=== PATIENT | male | born 1950 | race Two or more races ===

== ENCOUNTER 2020-08-08 15:21 | Outpatient (CLI) | payer OTHER | END 2020-08-08 16:22 | disposition home or self-care (01) | LOC: PPH VACUNA 15:21 | PROVIDERS: ATTEND Emergency Medicine Pediatric Emergency Medicine | DX: Z23 Encounter for immunization (principal) ==

== ENCOUNTER 2021-08-03 11:00 | Outpatient (CLI) | payer OTHER | END 2021-08-03 11:42 | disposition home or self-care (01) | LOC: ASH CLINIC 11:00 | DX: U07.1 COVID-19 (principal); Z23 Encounter for immunization ==